=== PATIENT | female | born 1995 | race Caucasian/White ===

== ENCOUNTER 2017-05-05 19:43 | Emergency (ER) | payer BC, MEDICAID ==
[~2017-05-05] VITALS: Ht 182.9 cm; Wt 118.2 kg
[2017-05-05] MEDS ORDERED: NAPR-855 PO (19:55)
[2017-05-05] MEDS ORDERED: CYCL10TA (19:55)
[2017-05-05] MEDS ORDERED: PERCOCET 5MG/325MG TAB PO ONE (21:15)
[2017-05-05] MEDS ORDERED: NORCOTAB PO (21:42)
[2017-05-05 21:51] VITALS: BP 131/70
--- NOTE | 2017-05-06 09:44 | REP ---
Clinical: Trauma. Technique: Frontal view of the chest with multiple views of the right hemithorax. Findings: Frontal view of the chest demonstrates no acute cardiopulmonary process. Multiple views of the right hemithorax demonstrates no obvious acute rib fracture or pathology. Impression: Normal right rib series Signed by Dony Tinoco MD 05/06/2017 09:35 A
== END 2017-05-05 21:55 | disposition home or self-care (01) ==
LOC: M ED 19:43
DX: S23.41XA Sprain of ribs, initial encounter (principal); W01.198A Fall on same level from slipping, tripping and stumbling with subsequent striking against other object, initial encounter; Y92.89 Other specified places as the place of occurrence of the external cause; Y93.01 Activity, walking, marching and hiking; Y99.9 Unspecified external cause status

== ENCOUNTER 2019-05-03 11:48 | Emergency (ER) | payer BC ==
[~2019-05-03] VITALS: Ht 182.9 cm; Wt 126.9 kg
[2019-05-03 11:48] VITALS: BP 148/102
[~2019-05-03 11:48] MED LIST: CYCL10TA; HYDR-3715 PO; NAPR-855 PO
[2019-05-03] MEDS ORDERED: BENA25CA4 PO (12:17)
[2019-05-03] MEDS ORDERED: PRED20TA PO (12:17)
[2019-05-03] MEDS ORDERED: PRIL20TA2 PO (12:17)
== END 2019-05-03 12:29 | disposition home or self-care (01) ==
LOC: M ED 11:48
DX: T78.40XA Allergy, unspecified, initial encounter (principal); Y92.9 Unspecified place or not applicable; Y93.9 Activity, unspecified; L29.9 Pruritus, unspecified; F17.200 Nicotine dependence, unspecified, uncomplicated

== ENCOUNTER 2019-08-17 10:14 | Emergency (ER) | payer BC ==
[~2019-08-17] VITALS: Ht 182.9 cm; Wt 126.7 kg
[2019-08-17 10:14] VITALS: BP 132/88
[~2019-08-17 10:14] MED LIST changes: +BENA25CA4 PO; +PRED20TA PO; +PRIL20TA2 PO
[2019-08-17] MEDS ORDERED: SUMA25TA3 (10:21)
[2019-08-17] MEDS ORDERED: ESCI20TA (10:21)
[2019-08-17 11:34] LABS: INFLUENZA A AMPLIFICATION NEGATIVE (NEGATIVE); INFLUENZA B AMPLIFICATION POSITIVE (NEGATIVE)
[2019-08-17] MEDS ORDERED: OSEL75CA PO (11:45)
== END 2019-08-17 12:28 | disposition home or self-care (01) ==
LOC: M ED 10:14
DX: J10.1 Influenza due to other identified influenza virus with other respiratory manifestations (principal); F17.200 Nicotine dependence, unspecified, uncomplicated; Z79.899 Other long term (current) drug therapy

== ENCOUNTER 2020-05-04 05:19 | Emergency (ER) | payer BC ==
[~2020-05-04] VITALS: Ht 182.9 cm; Wt 129.4 kg
[~2020-05-04 05:19] MED LIST changes: +CYCL-707; -CYCL10TA; +ESCI20TA; +OSEL75CA PO; +SUMA25TA3
[2020-05-04 05:20] VITALS: BP 135/90
[2020-05-04] MEDS ORDERED: LIDOCAINE 2% W/ EPINEPHRINE 1.7 ML DENTAL INJ SM ONE (06:30)
[2020-05-04] MEDS ORDERED: AUGM875T28 PO (06:53)
== END 2020-05-04 07:00 | disposition home or self-care (01) ==
LOC: M ED 05:19
DX: S02.5XXA Fracture of tooth (traumatic), initial encounter for closed fracture (principal); X58.XXXA Exposure to other specified factors, initial encounter; Y92.9 Unspecified place or not applicable; Y93.9 Activity, unspecified; Y99.9 Unspecified external cause status; F17.210 Nicotine dependence, cigarettes, uncomplicated; F33.9 Major depressive disorder, recurrent, unspecified; F41.9 Anxiety disorder, unspecified; Z79.899 Other long term (current) drug therapy

== ENCOUNTER 2020-09-03 16:19 | Emergency (ER) | payer BC, SELFPAY ==
[~2020-09-03] VITALS: Ht 182.9 cm; Wt 128.2 kg
[~2020-09-03 16:19] MED LIST changes: +AUGM875T28 PO
[2020-09-03 16:23] VITALS: BP 138/90
[2020-09-03] MEDS ORDERED: AUGM875T28 PO (16:53)
== END 2020-09-03 17:05 | disposition home or self-care (01) ==
LOC: M ED 16:19
DX: K04.7 Periapical abscess without sinus (principal)

== ENCOUNTER 2020-09-03 20:30 | Emergency (ER) | payer SELFPAY ==
[~2020-09-03] VITALS: Ht 182.9 cm; Wt 137.0 kg
[2020-09-03 20:31] VITALS: BP 149/100
== END 2020-09-03 21:24 | disposition home or self-care (01) ==
LOC: M ED 20:30
DX: K02.9 Dental caries, unspecified (principal); K04.7 Periapical abscess without sinus; F17.200 Nicotine dependence, unspecified, uncomplicated

== ENCOUNTER 2021-12-28 09:39 | Emergency (ER) | payer OTHER, SELFPAY ==
[~2021-12-28] VITALS: Ht 182.9 cm; Wt 131.6 kg
[~2021-12-28 09:39] MED LIST changes: +ASPE4PAD TOP; -ESCI20TA; +ESCI20TA16; +METH-1165 PO; +NAPR-837 PO
[2021-12-28 11:33] LABS: BASO # 0.1 10^3/uL (0.0-0.2); EOS # 0.2 10^3/uL (0.0-0.5); EOS % 2.7 % (0.0-3.0); HEMATOCRIT 50.1 % (36.0-47.0); LYMPH # 2.1 10^3/uL (1.5-5.0); LYMPH % 25.7 % (24.0-44.0); MEAN CORPUSCULAR HEMOGLOBIN 31.4 pg (27.0-33.0); MEAN CORPUSCULAR HGB CONC 33.9 g/dl (32.0-36.5); MEAN CORPUSCULAR VOLUME 92.6 fl (80.0-96.0); MONO # 0.4 10^3/uL (0.0-0.8); MONO % 4.8 % (2.0-8.0); NEUTROPHILS # 5.4 10^3/uL (1.5-8.5); NEUTROPHILS % 65.4 % (36.0-66.0); PLATELET COUNT, AUTOMATED 314 10^3/uL (150-450); RED BLOOD COUNT 5.41 10^6/uL (4.00-5.40); WHITE BLOOD COUNT 8.3 10^3/uL (4.0-10.0)
[2021-12-28] MEDS ORDERED: IBUPROFEN 800 MG TAB PO ONE (11:50)
[2021-12-28 11:57] LABS: BLOOD UREA NITROGEN 11 MG/DL (7-18); CALCIUM LEVEL 10.3 MG/DL (8.5-10.1); CARBON DIOXIDE LEVEL 27 MEQ/L (21-32); CHLORIDE LEVEL 109 MEQ/L (98-107); CREATININE FOR GFR 0.71 MG/DL (0.55-1.30); GLOMERULAR FILTRATION RATE > 60.0 (>60); GLUCOSE, FASTING 95 MG/DL (70-100); POTASSIUM SERUM 4.3 MEQ/L (3.5-5.1); SODIUM LEVEL 141 MEQ/L (136-145)
[2021-12-28 13:23] VITALS: BP 130/73
== END 2021-12-28 13:25 | disposition home or self-care (01) ==
LOC: M ED 09:39
DX: N92.6 Irregular menstruation, unspecified (principal); Z87.59 Personal history of other complications of pregnancy, childbirth and the puerperium; Z87.440 Personal history of urinary (tract) infections; Z87.42 Personal history of other diseases of the female genital tract; F17.200 Nicotine dependence, unspecified, uncomplicated

== ENCOUNTER → 2023-02-01 | Outpatient (CLI) | payer OTHER | LOC: M RAD 15:25 | PROVIDERS: ATTEND Nurse Practitioner Family | DX: D49.2 Neoplasm of unspecified behavior of bone, soft tissue, and skin (principal) ==

== ENCOUNTER 2024-03-12 20:13 | Inpatient (IN) | payer OTHER ==
[~2024-03-12] VITALS: Ht 182.9 cm; Wt 148.3 kg
[2024-03-12] MEDS ORDERED: PRED20TA PO (20:26)
[2024-03-12] MEDS ORDERED: AZIT-12 PO (20:26)
[2024-03-12] MEDS ORDERED: VENTAER INH (20:26)
[2024-03-12] MEDS ORDERED: ACET-840 PO (20:26)
[2024-03-12] MEDS ORDERED: BENZ150C5 PO (20:26)
[2024-03-12] MEDS ORDERED: OSEL75CA2 PO (20:26)
[2024-03-12] MEDS: NS 1,000 ML IV ONE (21:35)
[2024-03-12 21:43] LABS: BASO # 0.1 10^3/uL (0.0-0.2); BASO % 0.6 % (0.0-1.0); EOS # 0.1 10^3/uL (0.0-0.5); EOS % 0.5 % (0.0-3.0); HEMOGLOBIN 14.2 g/dl (12.0-15.5); LYMPH # 0.8 10^3/uL (1.5-5.0); LYMPH % 7.4 % (24.0-44.0); MEAN CORPUSCULAR HEMOGLOBIN 30.9 pg (27.0-33.0); MEAN CORPUSCULAR HGB CONC 33.8 g/dl (32.0-36.5); MEAN CORPUSCULAR VOLUME 91.3 fl (80.0-96.0); MONO # 0.6 10^3/uL (0.0-0.8); MONO % 5.6 % (2.0-8.0); NEUTROPHILS # 9.4 10^3/uL (1.5-8.5); NEUTROPHILS % 85.5 % (36.0-66.0); PLATELET COUNT, AUTOMATED 274 10^3/uL (150-450); WHITE BLOOD COUNT 11.1 10^3/uL (4.0-10.0)
[2024-03-12 21:52] LABS: ALBUMIN 3.9 G/DL (3.2-5.2); ALKALINE PHOSPHATASE 77 U/L (46-116); ALT/SGPT 39 U/L (7.0-40); AST/SGOT 27 U/L (<34); BILIRUBIN,DIRECT 0.4 MG/DL (<0.4); BILIRUBIN,TOTAL 1.1 MG/DL (0.3-1.2); BLOOD UREA NITROGEN 7 MG/DL (9-23); CARBON DIOXIDE LEVEL 26 MMOL/L (20-31); CHLORIDE LEVEL 104 MMOL/L (98-107); CREATININE FOR GFR 0.81 MG/DL (0.55-1.30); GLOMERULAR FILTRATION RATE > 60.0 (>60); GLUCOSE, FASTING 142 MG/DL (60-100); POTASSIUM SERUM 3.4 MMOL/L (3.5-5.1); SODIUM LEVEL 138 MMOL/L (136-145); TOTAL PROTEIN 7.2 G/DL (5.7-8.2)
[2024-03-12 21:54] LABS: HCG, SERUM QUALITATIVE NEGATIVE (NEGATIVE)
[2024-03-12 21:55] LABS: THYROXINE (T4) 9.5 UG/DL (4.5-10.9)
[2024-03-12] MEDS: IPRATROPIUM 0.5MG/ALBUTEROL 2.5MG INH SOL UD 3ML (DUONEB) NEB ONE (23:19)
[2024-03-13] VITALS (8 sets, daily range): BP systolic 132–144; BP diastolic 83–93; TEMP 97.9–98; O2SAT 82–94
[2024-03-13] MEDS ORDERED: ACETAMINOPHEN TAB 650MG DOSE (2X325MG) PO PRN (01:20)
[2024-03-13] MEDS: AZITHROMYCIN 250MG TABLET PO ONE (01:22)
[2024-03-13] MEDS: ACETAMINOPHEN 500 MG TAB PO ONE (01:22)
[2024-03-13] MEDS: methylPREDNISolone 125MG 2ML VIAL IV ONE (01:22)
[2024-03-13] MEDS: cefTRIAXone SOD 1 GM in D5W MINI-BAG PLUS 50 ML IV ONE (01:23)
[2024-03-13] MEDS: LR 1,000 ML IV SCH (03:17)
[2024-03-13] MEDS ORDERED: PRED20TA PO (04:02)
[2024-03-13] MEDS ORDERED: OSEL75CA PO (04:02)
[2024-03-13] MEDS ORDERED: ALBU8.5H INH (04:02)
[2024-03-13] MEDS ORDERED: AZIT-10 PO (04:02)
[2024-03-13] MEDS ORDERED: BENZ-18 PO (04:02)
[2024-03-13] MEDS ORDERED: HOME MED LIST COMPLETE! XX SCH (04:05)
[2024-03-13] MEDS: KETOROLAC 30 MG/ML 1ML VIAL IV ONE (05:18)
[2024-03-13] MEDS: BENZONATATE 100MG CAPSULE PO PRN (05:19)
[2024-03-13] MEDS: RAMELTEON 8 MG TAB (ROZEREM) PO ONE (05:19)
[2024-03-13] MEDS: ENOXAPARIN 40MG/0.4ML SYRINGE (J1650 PER 10MG) SC SCH (08:35)
[2024-03-13] MEDS: LevoFLOXacin 750 MG TABLET PO SCH (08:35)
[2024-03-13 08:55] LABS: BASO % 0.5 % (0.0-1.0); HEMOGLOBIN 14.2 g/dl (12.0-15.5); LYMPH % 13.6 % (24.0-44.0); MEAN CORPUSCULAR HEMOGLOBIN 30.3 pg (27.0-33.0); MEAN CORPUSCULAR HGB CONC 33.8 g/dl (32.0-36.5); MEAN CORPUSCULAR VOLUME 89.6 fl (80.0-96.0); MONO # 0.1 10^3/uL (0.0-0.8); MONO % 1.4 % (2.0-8.0); NEUTROPHILS # 6.4 10^3/uL (1.5-8.5); NEUTROPHILS % 83.7 % (36.0-66.0); PLATELET COUNT, AUTOMATED 286 10^3/uL (150-450); RED BLOOD COUNT 4.69 10^6/uL (4.00-5.40); WHITE BLOOD COUNT 7.6 10^3/uL (4.0-10.0)
[2024-03-13] MEDS ORDERED: ENOXAPARIN 40MG/0.4ML SYRINGE (J1650 PER 10MG) SC SCH (09:00)
[2024-03-13 09:15] LABS: BLOOD UREA NITROGEN 8 MG/DL (9-23); CALCIUM LEVEL 9.2 MG/DL (8.5-10.1); CARBON DIOXIDE LEVEL 27 MMOL/L (20-31); CHLORIDE LEVEL 107 MMOL/L (98-107); CREATININE FOR GFR 0.63 MG/DL (0.55-1.30); GLOMERULAR FILTRATION RATE > 60.0 (>60); GLUCOSE, FASTING 142 MG/DL (60-100); MAGNESIUM LEVEL 2.2 MG/DL (1.8-2.4); POTASSIUM SERUM 3.8 MMOL/L (3.5-5.1); SODIUM LEVEL 140 MMOL/L (136-145)
[2024-03-13] MEDS ORDERED: ISOVUE-370 76% 100ML VIAL As Ordered ONE (09:36)
[2024-03-13] MEDS: ACETAMINOPHEN TAB 650MG DOSE (2X325MG) PO PRN (15:59)
[2024-03-13 20:22] LABS: CK-MB VALUE MASS 1.8 NG/ML (<3.6)
[2024-03-13 20:27] LABS: CPK CREATINE PHOSPHOKINASE 248 U/L (34-145); MB/CK RELATIVE INDEX 0.72 (< OR =4)
[2024-03-13] MEDS: IPRATROPIUM 0.5MG/ALBUTEROL 2.5MG INH SOL UD 3ML (DUONEB) NEB ONE (20:54)
[2024-03-13] MEDS ORDERED: AZITHROMYCIN 250MG TABLET PO SCH (21:00)
[2024-03-13] MEDS: IBUPROFEN 800 MG TAB PO PRN (21:53)
[2024-03-14] MEDS ORDERED: KETOROLAC 30 MG/ML 1ML VIAL IV ONE (00:05)
[2024-03-14] MEDS: NORCO, ANEXSIA 5/325MG TABLET (HYDROcodone/ACETAMINOPHEN) PO ONE (00:46)
[2024-03-14 04:30] VITALS: BP 134/88; TEMP 97.7; O2SAT 97
[2024-03-14 06:40] LABS: BASO % 0.4 % (0.0-1.0); EOS # 0.1 10^3/uL (0.0-0.5); EOS % 0.7 % (0.0-3.0); HEMATOCRIT 37.7 % (36.0-47.0); LYMPH # 2.1 10^3/uL (1.5-5.0); LYMPH % 28.4 % (24.0-44.0); MEAN CORPUSCULAR HGB CONC 32.1 g/dl (32.0-36.5); MEAN CORPUSCULAR VOLUME 93.5 fl (80.0-96.0); MONO # 0.6 10^3/uL (0.0-0.8); MONO % 7.7 % (2.0-8.0); NEUTROPHILS # 4.5 10^3/uL (1.5-8.5); NEUTROPHILS % 61.7 % (36.0-66.0); PLATELET COUNT, AUTOMATED 255 10^3/uL (150-450); RED BLOOD COUNT 4.03 10^6/uL (4.00-5.40); WHITE BLOOD COUNT 7.3 10^3/uL (4.0-10.0)
[2024-03-14 06:41] LABS: HEMOGLOBIN 12.1 g/dl (12.0-15.5)
[2024-03-14 07:06] LABS: BLOOD UREA NITROGEN 15 MG/DL (9-23); CARBON DIOXIDE LEVEL 30 MMOL/L (20-31); CHLORIDE LEVEL 110 MMOL/L (98-107); CREATININE FOR GFR 0.78 MG/DL (0.55-1.30); GLOMERULAR FILTRATION RATE > 60.0 (>60); GLUCOSE, FASTING 101 MG/DL (60-100); MAGNESIUM LEVEL 2.1 MG/DL (1.8-2.4); POTASSIUM SERUM 3.8 MMOL/L (3.5-5.1); SODIUM LEVEL 146 MMOL/L (136-145)
[2024-03-14] MEDS: ONDANSETRON 4MG 2ML VIAL IV PRN (08:17)
[2024-03-14] MEDS ORDERED: MIRALAX *UNIT DOSE* 17GM PACKET PO PRN (09:35)
[2024-03-14] MEDS ORDERED: MOM 30ML SUSPENSION UDC PO PRN (09:35)
[2024-03-14] MEDS: SENOKOT S TAB PO SCH (10:28)
[2024-03-14] MEDS: methylPREDNISolone 40MG 1ML VIAL IV SCH (10:28)
[2024-03-14 11:58] VITALS: BP 136/88; TEMP 97.3; O2SAT 95
[2024-03-14] MEDS: IPRATROPIUM 0.5MG/ALBUTEROL 2.5MG INH SOL UD 3ML (DUONEB) NEB PRN (15:20)
[2024-03-14 20:23] VITALS: BP 153/92; TEMP 97.9; O2SAT 94
[2024-03-14] MEDS: RAMELTEON 8 MG TAB (ROZEREM) PO SCH (21:11)
[2024-03-14 21:15] VITALS: O2SAT 95
[2024-03-15 04:00] VITALS: BP 106/68; TEMP 97.7; O2SAT 95
[2024-03-15 06:42] LABS: BASO % 0.3 % (0.0-1.0); HEMOGLOBIN 12.5 g/dl (12.0-15.5); LYMPH # 1.4 10^3/uL (1.5-5.0); LYMPH % 16.6 % (24.0-44.0); MEAN CORPUSCULAR HEMOGLOBIN 30.1 pg (27.0-33.0); MEAN CORPUSCULAR HGB CONC 32.9 g/dl (32.0-36.5); MEAN CORPUSCULAR VOLUME 91.6 fl (80.0-96.0); MONO # 0.3 10^3/uL (0.0-0.8); MONO % 3.3 % (2.0-8.0); NEUTROPHILS # 6.7 10^3/uL (1.5-8.5); NEUTROPHILS % 77.8 % (36.0-66.0); PLATELET COUNT, AUTOMATED 292 10^3/uL (150-450); RED BLOOD COUNT 4.15 10^6/uL (4.00-5.40); WHITE BLOOD COUNT 8.6 10^3/uL (4.0-10.0)
[2024-03-15 07:08] LABS: BLOOD UREA NITROGEN 14 MG/DL (9-23); CARBON DIOXIDE LEVEL 31 MMOL/L (20-31); CHLORIDE LEVEL 107 MMOL/L (98-107); CREATININE FOR GFR 0.72 MG/DL (0.55-1.30); GLOMERULAR FILTRATION RATE > 60.0 (>60); GLUCOSE, FASTING 121 MG/DL (60-100); MAGNESIUM LEVEL 2.2 MG/DL (1.8-2.4); POTASSIUM SERUM 4.1 MMOL/L (3.5-5.1); SODIUM LEVEL 142 MMOL/L (136-145)
[2024-03-15 07:26] VITALS: BP 153/94; TEMP 97.5; O2SAT 96
[2024-03-15] MEDS: guaiFENesin/CODEINE SYRUP 5 ML UDC PO PRN (08:58)
[2024-03-15 10:40] VITALS: O2SAT 93
[2024-03-15] MEDS ORDERED: GUAI1SOL7 PO (11:13)
[2024-03-15] MEDS ORDERED: PRED10TA2 PO (11:13)
[2024-03-15] MEDS ORDERED: LEVO1TAB40 PO (11:13)
[2024-03-15] MEDS: predniSONE 20 MG TAB PO ONE (11:45)
== END 2024-03-15 13:23 | disposition home or self-care (01) | DRG 139 ==
LOC: M ED 20:13 → M ED INP 03-13 01:19 → M MSPAV 03-13 03:03
PROVIDERS: ADMIT Internal Medicine; ATTEND Internal Medicine
DX: J15.7 Pneumonia due to Mycoplasma pneumoniae (principal); J96.01 Acute respiratory failure with hypoxia; Z68.41 Body mass index [BMI] 40.0-44.9, adult; E66.9 Obesity, unspecified; R19.7 Diarrhea, unspecified; R11.2 Nausea with vomiting, unspecified; Z79.2 Long term (current) use of antibiotics; Z79.52 Long term (current) use of systemic steroids; Z79.899 Other long term (current) drug therapy; Z11.52 Encounter for screening for COVID-19; K59.00 Constipation, unspecified; Z87.891 Personal history of nicotine dependence; J98.11 Atelectasis

== ENCOUNTER 2024-06-07 18:19 | Emergency (ER) | payer OTHER ==
[~2024-06-07] VITALS: Ht 182.9 cm; Wt 147.2 kg
[~2024-06-07 18:19] MED LIST changes: +ACET-840 PO; +ALBU8.5H INH; +AZIT-10 PO; +AZIT-12 PO; +BENZ-18 PO; +BENZ150C5 PO; +GUAI1SOL7 PO; +LEVO1TAB40 PO; +OSEL75CA2 PO; +PRED10TA2 PO; +VENTAER INH
[2024-06-07 19:10] LABS: BASO # 0.1 10^3/uL (0.0-0.2); EOS # 0.4 10^3/uL (0.0-0.5); EOS % 3.3 % (0.0-3.0); HEMATOCRIT 43.4 % (36.0-47.0); HEMOGLOBIN 14.7 g/dl (12.0-15.5); LYMPH # 2.9 10^3/uL (1.5-5.0); LYMPH % 25.1 % (24.0-44.0); MEAN CORPUSCULAR HEMOGLOBIN 31.2 pg (27.0-33.0); MEAN CORPUSCULAR HGB CONC 33.9 g/dl (32.0-36.5); MEAN CORPUSCULAR VOLUME 92.1 fl (80.0-96.0); MONO # 0.7 10^3/uL (0.0-0.8); MONO % 6.2 % (2.0-8.0); NEUTROPHILS # 7.3 10^3/uL (1.5-8.5); NEUTROPHILS % 63.8 % (36.0-66.0); PLATELET COUNT, AUTOMATED 387 10^3/uL (150-450); RED BLOOD COUNT 4.71 10^6/uL (4.00-5.40); WHITE BLOOD COUNT 11.4 10^3/uL (4.0-10.0)
[2024-06-07 19:31] LABS: HCG, SERUM QUALITATIVE NEGATIVE (NEGATIVE)
[2024-06-07 19:33] LABS: ALBUMIN 3.9 G/DL (3.2-5.2); ALKALINE PHOSPHATASE 92 U/L (46-116); ALT/SGPT 31 U/L (7.0-40); AST/SGOT 21 U/L (<34); BILIRUBIN,DIRECT < 0.1 MG/DL (<0.4); BILIRUBIN,TOTAL 0.4 MG/DL (0.3-1.2); BLOOD UREA NITROGEN 10 MG/DL (9-23); CARBON DIOXIDE LEVEL 30 MMOL/L (20-31); CHLORIDE LEVEL 107 MMOL/L (98-107); CREATININE FOR GFR 0.79 MG/DL (0.55-1.30); GLOMERULAR FILTRATION RATE > 60.0 (>60); GLUCOSE, FASTING 105 MG/DL (60-100); POTASSIUM SERUM 4.4 MMOL/L (3.5-5.1); SODIUM LEVEL 141 MMOL/L (136-145); TOTAL PROTEIN 7.3 G/DL (5.7-8.2)
[2024-06-07] MEDS: BENZONATATE 100MG CAPSULE PO ONE (19:59)
[2024-06-07 20:11] LABS: CK-MB VALUE MASS < 1.0 NG/ML (<3.6)
[2024-06-07] MEDS: IPRATROPIUM 0.5MG/ALBUTEROL 2.5MG INH SOL UD 3ML (DUONEB) NEB ONE (20:16)
[2024-06-07 20:19] LABS: CPK CREATINE PHOSPHOKINASE 127 U/L (34-145); MB/CK RELATIVE INDEX 0.78 (< OR =4); PROCALCITONIN 0.05 ng/ml
[2024-06-07 20:28] VITALS: O2SAT 96
[2024-06-07] MEDS: AZITHROMYCIN 250MG TABLET PO ONE (20:39)
[2024-06-07] MEDS ORDERED: ISOVUE-370 76% 100ML VIAL As Ordered ONE (20:43)
[2024-06-07] MEDS ORDERED: IPRATROPIUM 0.5MG/ALBUTEROL 2.5MG INH SOL UD 3ML (DUONEB) NEB ONE (21:05)
[2024-06-07] MEDS: LEVALBUTEROL 1.25MG 0.5ML CONCENTRATE NEB NEB ONE (21:25)
[2024-06-07] MEDS ORDERED: cefTRIAXone SOD 2 GM in D5W MINI-BAG PLUS 50 ML IV ONE (22:05)
[2024-06-07] MEDS ORDERED: BENZ200C70 PO (22:11)
[2024-06-07] MEDS ORDERED: LEVO1TAB40 PO (22:11)
[2024-06-07] MEDS ORDERED: PRED10TA2 PO (22:14)
[2024-06-07] MEDS: LevoFLOXacin 750 MG TABLET PO ONE (22:18)
[2024-06-07 22:24] VITALS: BP 142/86; TEMP 97; O2SAT 97
== END 2024-06-07 22:26 | disposition home or self-care (01) ==
LOC: M ED 18:19
DX: J18.9 Pneumonia, unspecified organism (principal); R16.1 Splenomegaly, not elsewhere classified
CPT/HCPCS: 71046; 71275; 80048; 80076; 82550; 82553; 84145; 84484; 84703; 85025; 87486; 87581; 87633; 87798; 93005; 94640; 99284; Q9967

== ENCOUNTER 2024-09-08 23:35 | Emergency (ER) | payer OTHER ==
[~2024-09-08] VITALS: Ht 182.9 cm; Wt 147.0 kg
[~2024-09-08 23:35] MED LIST changes: +BENZ200C70 PO
[2024-09-08 23:40] VITALS: TEMP 98.3
[2024-09-09] MEDS ORDERED: BENZ200C70 PO (05:07)
[2024-09-09] MEDS ORDERED: PRED20TA PO (05:07)
[2024-09-09] MEDS: predniSONE 20 MG TAB PO ONE (05:31)
[2024-09-09] MEDS: IPRATROPIUM 0.5MG/ALBUTEROL 2.5MG INH SOL UD 3ML (DUONEB) NEB ONE (05:37)
[2024-09-09 05:45] VITALS: BP 142/75; O2SAT 97
== END 2024-09-09 05:57 | disposition home or self-care (01) ==
LOC: M ED 23:35
DX: J20.5 Acute bronchitis due to respiratory syncytial virus (principal); Z79.52 Long term (current) use of systemic steroids; Z79.899 Other long term (current) drug therapy; Z90.89 Acquired absence of other organs
CPT/HCPCS: 71046; 87486; 87581; 87633; 87798; 99284; J7512

== ENCOUNTER 2024-09-23 22:07 | Emergency (ER) | payer OTHER ==
[~2024-09-23] VITALS: Ht 182.9 cm; Wt 148.2 kg
[2024-09-23 22:51] LABS: BASO # 0.1 10^3/uL (0.0-0.2); BASO % 0.8 % (0.0-1.0); EOS # 0.3 10^3/uL (0.0-0.5); EOS % 3.5 % (0.0-3.0); HEMATOCRIT 43.1 % (36.0-47.0); HEMOGLOBIN 14.1 g/dl (12.0-15.5); LYMPH # 2.1 10^3/uL (1.5-5.0); LYMPH % 23.5 % (24.0-44.0); MEAN CORPUSCULAR HEMOGLOBIN 30.3 pg (27.0-33.0); MEAN CORPUSCULAR HGB CONC 32.7 g/dl (32.0-36.5); MEAN CORPUSCULAR VOLUME 92.7 fl (80.0-96.0); MONO # 0.7 10^3/uL (0.0-0.8); MONO % 7.8 % (2.0-8.0); NEUTROPHILS # 5.7 10^3/uL (1.5-8.5); NEUTROPHILS % 63.5 % (36.0-66.0); PLATELET COUNT, AUTOMATED 300 10^3/uL (150-450); RED BLOOD COUNT 4.65 10^6/uL (4.00-5.40); WHITE BLOOD COUNT 8.9 10^3/uL (4.0-10.0)
[2024-09-23 23:21] LABS: CPK CREATINE PHOSPHOKINASE 51 U/L (34-145)
[2024-09-23 23:22] LABS: ALBUMIN 3.7 G/DL (3.2-5.2); ALKALINE PHOSPHATASE 87 U/L (35-104); ALT/SGPT 37 U/L (7.0-40); AST/SGOT 22 U/L (<34); BILIRUBIN,TOTAL 0.5 MG/DL (0.3-1.2); BLOOD UREA NITROGEN 15 MG/DL (9-23); CALCIUM LEVEL 9.3 MG/DL (8.5-10.1); CARBON DIOXIDE LEVEL 30 MMOL/L (20-31); CHLORIDE LEVEL 109 MMOL/L (98-107); CK-MB VALUE MASS < 1.0 NG/ML (<3.6); CREATININE FOR GFR 0.67 MG/DL (0.55-1.30); GLOMERULAR FILTRATION RATE > 60.0 (>60); GLUCOSE, FASTING 117 MG/DL (60-100); MB/CK RELATIVE INDEX 1.96 (< OR =4); SODIUM LEVEL 143 MMOL/L (136-145); TOTAL PROTEIN 6.8 G/DL (5.7-8.2)
[2024-09-23 23:27] LABS: HCG, SERUM QUALITATIVE NEGATIVE (NEGATIVE)
[2024-09-24 06:52] VITALS: BP 130/66
[2024-09-24 06:55] LABS: MONO SCRN NEGATIVE (NEGATIVE)
[2024-09-24] MEDS ORDERED: DOXY-441 PO (06:55)
[2024-09-24 07:07] VITALS: TEMP 97.6; O2SAT 95
[2024-09-24] MEDS: DOXYCYCLINE HYCLATE 100MG TABLET PO ONE (07:13)
== END 2024-09-24 07:15 | disposition home or self-care (01) ==
LOC: M ED 22:07
DX: J18.9 Pneumonia, unspecified organism (principal); J90 Pleural effusion, not elsewhere classified; R91.1 Solitary pulmonary nodule; F10.10 Alcohol abuse, uncomplicated; Z79.899 Other long term (current) drug therapy

== ENCOUNTER → 2024-10-07 | Outpatient (CLI) | payer OTHER ==
[~2024-10-07] MED LIST changes: +DOXY-441 PO
== END ==
LOC: M EKG 14:04
PROVIDERS: ATTEND Internal Medicine Cardiovascular Disease
DX: R00.2 Palpitations (principal); Z53.9 Procedure and treatment not carried out, unspecified reason

== ENCOUNTER → 2024-11-25 | Outpatient (CLI) | payer OTHER | LOC: M CARPUL 09:26 | PROVIDERS: ATTEND Internal Medicine Cardiovascular Disease | DX: R60.0 Localized edema (principal); G47.9 Sleep disorder, unspecified; R06.02 Shortness of breath ==

== ENCOUNTER → 2024-12-01 | Outpatient (CLI) | payer OTHER | LOC: M RAD 15:08 | PROVIDERS: ATTEND Nurse Practitioner Family | DX: D38.1 Neoplasm of uncertain behavior of trachea, bronchus and lung (principal); R91.8 Other nonspecific abnormal finding of lung field ==

== ENCOUNTER → 2025-03-11 | Outpatient (CLI) | payer OTHER | LOC: M SLEEP 20:00 | PROVIDERS: ATTEND Internal Medicine Pulmonary Disease | DX: R06.83 Snoring (principal) ==